=== PATIENT | male | born 1945 | race African-American/Black ===

== ENCOUNTER 2017-04-28 05:03 | Emergency (ER) | payer MEDICARE, OTHER ==
[~2017-04-28] VITALS: Ht 172.7 cm; Wt 72.6 kg
[~2017-04-28 05:03] MED LIST: ADVAIR 100/501 PUFF1 INH; ENALAPRIL MALEAT5 MG ORAL; NAPROXEN500 M2 ORAL; NORCO 5-325 TA1 EACH ORAL; PERCOCET 5-3251 EACH ORAL; PROAIR HFA8.5 GM INH; SOMA350 MG PO; VICODIN ES 7.51 EACH ORAL
[2017-04-28] MEDS ORDERED: NORCO 10-325 T1 EACH ORAL (05:07)
[2017-04-28] MEDS ORDERED: GABAPENTIN300 MG ORAL (05:07)
[2017-04-28 05:10] VITALS: BP 134/70
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
[2017-04-28] MEDS ORDERED: HYDROmorphone 1mg/ml Carpuject IM ONE (05:30)
[2017-04-28] MEDS ORDERED: HYDROCODON-ACE1 EA16 ORAL (06:15)
[2017-04-28 06:44] VITALS: BP 114/87
== END 2017-04-28 06:44 | disposition home or self-care (01) ==
LOC: EDBD 05:03 → EMR 05:36
DX: M54.41 Lumbago with sciatica, right side (principal); G89.29 Other chronic pain; I10 Essential (primary) hypertension; J45.909 Unspecified asthma, uncomplicated; K76.0 Fatty (change of) liver, not elsewhere classified
CPT/HCPCS: 96372; 99283; J1170

== ENCOUNTER 2017-05-25 01:14 | Inpatient (IN) | payer MEDICARE, OTHER ==
[~2017-05-25] VITALS: Ht 172.7 cm; Wt 68.0 kg
[~2017-05-25 01:14] MED LIST changes: +GABAPENTIN300 MG ORAL; +HYDROCODON-ACE1 EA16 ORAL; +NORCO 10-325 T1 EACH ORAL
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
[2017-05-25] MEDS ORDERED: Norco 5mg/325mg tab ORAL ONE (01:30)
[2017-05-25] MEDS ORDERED: Lidocaine 1% Plain 30 ml INJ ONE (01:30)
[2017-05-25 01:43] VITALS: BP 144/93
[2017-05-25 02:20] LABS: BASOPHILS % (AUTO) 2.2 % (0.0-2.0); EOSINOPHILS % (AUTO) 2.1 % (0.0-3.0); LYMPHOCYTES % (AUTO) 33.6 % (20.0-45.0); MEAN CORPUSCULAR HEMOGLOBIN 28.9 PG (27.0-31.0); MEAN CORPUSCULAR HGB CONC 34.7 G/DL (32.0-36.0); MEAN CORPUSCULAR VOLUME 83 FL (80-99); MEAN PLATELET VOLUME 7.4 FL (6.5-10.1); MONOCYTES % (AUTO) 7.9 % (1.0-10.0); NEUTROPHILS % (AUTO) 54.2 % (45.0-75.0); PLATELET COUNT 332 K/UL (150-450); RED CELL DISTRIBUTION WIDTH 12.1 % (11.6-14.8); WHITE BLOOD COUNT 9.3 K/UL (4.8-10.8)
[2017-05-25 02:36] LABS: ALANINE AMINOTRANSFERASE 19 U/L (3-41); ALBUMIN/GLOBULIN RATIO 1.3 (1.0-2.7); ANION GAP 14 (5-15); ASPARTATE AMINO TRANSFERASE 20 U/L (5-40); CALCIUM 8.8 mg/dL (8.6-10.2); CARBON DIOXIDE 24 mEQ/L (20-30); CHLORIDE 97 mEQ/L (98-107); HEMOLYSIS 8; POTASSIUM 3.9 mEQ/L (3.4-4.9); SODIUM 135 mEQ/L (135-145); TOTAL PROTEIN 6.9 g/dL (6.6-8.7)
[2017-05-25 02:40] LABS: APPEARANCE, BODY FLUID CLOUDY; BD FL VOLUME 70 mL
[2017-05-25 02:42] LABS: BD FL SOURCE SYNOVIAL
[2017-05-25 02:46] LABS: BODY FLUID NUCLEATED CELLS 32000 /CUMM; BODY FLUID RBC 50 /CUMM; MONONUCLEAR WBC 4 %; POLYMORPHONUCLEAR WBC 95 %
[2017-05-25 03:13] LABS: PROTHROMBIN TIME 10.4 SEC (9.30-11.50)
[2017-05-25 04:00] VITALS: BP 151/93
[2017-05-25] MEDS ORDERED: HYDROmorphone 1mg/ml Carpuject IVP ONE ×2 (05:15→05:30)
[2017-05-25 06:30] VITALS: BP 136/79
[2017-05-25] MEDS ORDERED: Miralax 17gm pkt ORAL PRN (07:15)
[2017-05-25] MEDS ORDERED: DuoNeb 0.5-3(2.5)mg/3ml neb HHN PRN (07:15)
[2017-05-25] MEDS ORDERED: Nitroglycerin Subl 0.4mg tab (Bottle Of 25) SL PRN (07:15)
[2017-05-25] MEDS: Cefepime HCl 2 GM in D5W 110 ML IV SCH ×2 (08:06→20:39)
[2017-05-25] MEDS: Heparin 5000 units/ml inj SUBQ SCH ×2 (08:08→20:40)
[2017-05-25 08:46] VITALS: BP 124/74
--- NOTE | 2017-05-25 08:59 | Consultation ---
Consult Note Consult Note Patient seen/evaluated. Knee aspiration with 32k WBC. No fever/Chills. Crystals and Gram stain not done yet. Will order Gram stain. We are awaiting crystal to come back from [facility]. spoke to labratory to do the required testing STAT. Will follow up YUSRA DONATO May 25, 2017 08:59
[2017-05-25] MEDS ORDERED: Vancomycin 1 GM in D5W 275 ML IVPB ONE (09:00)
--- NOTE | 2017-05-25 09:17 | Consultation ---
Consult Note Consult Note Addendum. I was told that crystal are not done at this hospital until Saturday. Gram stain was not ordered and it is ordered. patient has had a history of gout and similar presentation in the past and was treated with gout meds., Recommend NSAID and other gout meds. Will await gram stain. YUSRA DONATO May 25, 2017 09:17
[2017-05-25] MEDS: Morphine Sulfate 2mg/ml Inj IVP PRN ×2 (09:53→15:20)
[2017-05-25] MEDS: celeBREX 200mg Cap **SURGERY PATIENTS ONLY ORAL SCH (10:00)
[2017-05-25] MEDS: Enalapril 5mg tab ORAL SCH (11:40)
[2017-05-25 12:00] VITALS: BP 128/76
--- NOTE | 2017-05-25 13:32 | Consultation ---
DATE OF CONSULTATION: 05/25/2017 ORTHOPEDIC CONSULTATION REASON FOR CONSULTATION: Right knee swelling, possible septic joint. BRIEF HISTORY: The patient is a pleasant 72-year-old healthy gentleman with past medical history including gout with gouty exacerbation in the past, required some colchicine and medications. He presented in the ER after 4 days of swelling in his right knee. He has had no fever, chills, or systemic signs of infection. His has a normal white count. He was evaluated and the ER physician aspirated his right knee fluid. The knee fluid revealed 32,000 WBC. There was a left shift. The patient was admitted for to rule out septic joint and Orthopedic consultation was obtained. Crystals were ordered, although crystals apparently are not being done at the hospital over the weekend. Gram stain was not ordered. Gram stain has been ordered since I have evaluated this patient at this point, and we are awaiting the results. He has had no numbness, tingling, or weakness. He has had no other significant injuries. Main issue is pain in the right knee. PAST MEDICAL HISTORY: Significant for history of hypertension. No history of diabetes. PAST SURGICAL HISTORY: None. MEDICATIONS: Please see chart, this was reviewed. ALLERGIES: No known drug allergies. SOCIAL HISTORY: He has taken up smoking 3 months ago. He does not drink excessively. He does not have any other major issues. He is an independent ambulator. PHYSICAL EXAMINATION: EXTREMITIES: Examination of the right knee revealed a swollen knee. It is hot and irritated. He does have some mild range of motion, short of 10 degrees for full extension, and up to 40 degrees of flexion. . LABORATORY AND DIAGNOSTIC DATA: X-rays are pending. Laboratory reveals very 32,000 white count on the right knee aspiration with a left shift with 25% PMNs . Cultures and Gram stain have not been ordered and these were ordered at this point. Crystals are pending. IMPRESSION: Right knee swelling, most likely gouty arthritis based on the history, lack of fever, chills, and white count with history of gout in the past. PLAN: At this time, we will await the Gram stain. We will hold off any antibiotics. Systemic antiinflammatory. We will ask Dr. Dunaway to provide gouty medication for this patient. We will follow up on the results of Gram stain. I will follow the patient clinically. We will follow up on the result of crystals, and I have asked the laboratory to send this out stat to possibly another laboratory for crystals. Sarmad Wilson M.D. DR: AYDE JOB#: [id number] CC:
[2017-05-25] MEDS: Indomethacin 25mg cap ORAL SCH ×2 (13:40→17:49)
--- NOTE | 2017-05-25 13:53 | History and Physical ---
History of Present Illness General Date patient seen: May 25, 2017 Reason for Hospitalization: knee pian Present Illness HPI 71-year-old male with a history of severe degenerative disc disease, COPD , brought in by paramedics with pain, palpable warmth and swelling to right knee. Pain worse with flexion, movement of knee. Pt is admitted because of intractable pain and possibility of septic joint. Allergies: Coded Allergies: No Known Allergies (Unverified , 04/28/17) Medication History Scheduled Enalapril Maleate* (Enalapril Maleate*), 5 MG ORAL DA, (Reported) Fluticasone/Salmeterol (Advair 100-50 Diskus), 1 PUFF INH NEEDED, (Reported) Gabapentin* (Gabapentin*), 300 MG ORAL THREE TIMES A DAY, (Reported) Naproxen* (Naproxen*), 500 MG ORAL TWICE A DAY, (Reported) Scheduled PRN Albuterol Sulfate* (Proair Hfa*), 2 PUFFS INH Q6H PRN, (Reported) Carisoprodol* (Soma*), 350 MG PO Q6 PRN, (Reported) Hydrocodone Bit/Acetaminophen 10-325* (Linwood 10-325*), 1 TAB ORAL Q4H PRN for For Pain, (Reported) Hydrocodone Bit/Acetaminophen 5-325* ([place] 5-325*), 1 TAB ORAL Q4H PRN for For Pain, (Reported) Hydrocodone/Acetaminophen 7.5-325* (Hydrocodon-Acetaminoph 7.5-325*), 1 TAB ORAL Q6H PRN for For Pain Oxycodone/Acetaminophen 5-325* (Percocet 5-325 Mg Tablet*), 1 TAB ORAL Q6H PRN for For Pain Patient History Healthcare decision maker Resuscitation status Full Code Advanced Directive on File Past Medical/Surgical History Past Medical/Surgical History: (1) Osteoarthritis Review of Systems All Other Systems: negative except mentioned in HPI Physical Exam General Appearance: WD/WN, no apparent distress Lines, tubes and drains: peripheral HEENT: normocephalic Neck: non-tender, normal alignment Respiratory/Chest: chest wall non-tender, lungs clear Breasts: no masses Cardiovascular/Chest: normal peripheral pulses Abdomen: normal bowel sounds, non tender Genitourinary/Rectal: normal genital exam Extremities: normal range of motion Skin Exam: normal pigmentation Neurologic: no motor/sensory deficits Last 24 Hour Vital Signs Date Time Temp Pulse Resp B/P Pulse Ox O2 Delivery O2 Flow Rate FiO2 05/25/17 12:00 97.0 86 20 128/76 99 Room Air 05/25/17 11:40 124/74 05/25/17 10:23 97.9 05/25/17 08:46 97.9 75 18 124/74 96 Room Air 05/25/17 06:30 97.7 72 18 136/79 98 Room Air 05/25/17 06:14 98.7 77 18 128/78 98 Room Air 05/25/17 04:00 98.7 77 18 151/93 99 Room Air 05/25/17 03:02 98.4 05/25/17 01:43 98.4 18 144/93 99 Room Air 05/25/17 01:18 98.4 91 18 144/93 99 Room Air Intake and Output 05/24/17 05/25/17 19:00 07:00 Intake Total 50 ml Balance 50 ml Intake Oral 50 ml Laboratory Tests Test 05/25/17 01:52 05/25/17 02:10 Body Fluid Source Synovial Body Fluid Volume 70 mL Body Fluid Appearance Cloudy Body Fluid RBC 50 /CUMM Body Fluid Total Nucleated Cells 96928 /CUMM Body Fluid Polynuclear WBCs (%) 95 % Body Fluid Mononuclear WBCs (%) 4 % Body Fluid Mesothelial Cells (%) 1 % Synovial Fluid Crystals Pending White Blood Count 9.3 K/UL (4.8-10.8) Red Blood Count 4.90 M/UL (4.70-6.10) Hemoglobin 14.2 G/DL (14.2-18.0) Hematocrit 40.9 % (42.0-52.0) L Mean Corpuscular Volume 83 FL (80-99) Mean Corpuscular Hemoglobin 28.9 PG (27.0-31.0) Mean Corpuscular Hemoglobin Concent 34.7 G/DL (32.0-36.0) Red Cell Distribution Width 12.1 % (11.6-14.8) Platelet Count 332 K/UL (150-450) Mean Platelet Volume 7.4 FL (6.5-10.1) Neutrophils (%) (Auto) 54.2 % (45.0-75.0) Lymphocytes (%) (Auto) 33.6 % (20.0-45.0) Monocytes (%) (Auto) 7.9 % (1.0-10.0) Eosinophils (%) (Auto) 2.1 % (0.0-3.0) Basophils (%) (Auto) 2.2 % (0.0-2.0) H Prothrombin Time 10.4 SEC (9.30-11.50) Prothromb Time International Ratio 1.0 (0.9-1.1) Activated Partial Thromboplast Time 29 SEC (23-33) Sodium Level 135 mEQ/L (135-145) Potassium Level 3.9 mEQ/L (3.4-4.9) Chloride Level 97 mEQ/L (98-107) L Carbon Dioxide Level 24 mEQ/L (20-30) Anion Gap 14 (5-15) Blood Urea Nitrogen 22 mg/dL (7-23) Creatinine 1.0 mg/dL (0.7-1.2) Estimat Glomerular Filtration Rate mL/min (>60) Glucose Level 106 mg/dL (74-106) Calcium Level 8.8 mg/dL (8.6-10.2) Total Bilirubin 0.7 mg/dL (0.0-1.2) Aspartate Amino Transf (AST/SGOT) 20 U/L (5-40) Alanine Aminotransferase (ALT/SGPT) 19 U/L (3-41) Alkaline Phosphatase 70 U/L (40-129) Total Protein 6.9 g/dL (6.6-8.7) Albumin 4.0 g/dL (3.5-5.2) Globulin 2.9 g/dL Albumin/Globulin Ratio 1.3 (1.0-2.7) Microbiology Date/Time Source Procedure Growth Status 05/25/17 09:50 Synovial Fluid Gram Stain - Final Resulted 05/25/17 09:50 Synovial Fluid Body Fluid Culture - Preliminary Resulted Height (Feet): 5 Height (Inches): 8.00 Weight (Pounds): 150 Medications Current Medications Medications (Trade) Dose Ordered Sig/Josh Route PRN Reason Start Time Stop Time Status Last Admin Dose Admin Acetaminophen (Tylenol) 650 mg Q4H PRN ORAL fever 05/25/17 07:15 06/24/17 07:14 Acetaminophen/ Hydrocodone Bitart ([place] 10/325) 1 ea Q4H PRN ORAL Severe Pain (Pain Scale 7-10) 05/25/17 07:15 06/01/17 07:14 Albuterol/ Ipratropium (DuoNeb 0.5-3(2.5)mg/3ml) 3 ml Q4H PRN HHN Shortness of Breath 05/25/17 07:15 05/30/17 07:14 Carisoprodol (Soma) 350 mg EVERY 8 HOURS ORAL 05/25/17 14:00 06/24/17 13:59 05/25/17 13:41 Cefepime HCl/ Dextrose (Maxipime/D5W) 110 ml @ 220 mls/hr Q12HR@0800,2000 IV 05/25/17 08:00 06/01/17 07:59 05/25/17 08:06 Celecoxib (CeleBREX) 200 mg DAILY ORAL 05/25/17 10:00 05/29/17 09:01 Dextrose (Dextrose 50%) STAT PRN IV Hypoglycemia 05/25/17 07:15 06/24/17 07:14 Enalapril Maleate (Vasotec) 5 mg DAILY ORAL 05/25/17 09:00 06/24/17 08:59 05/25/17 11:40 Gabapentin (Neurontin) 300 mg THREE TIMES A DAY ORAL 05/25/17 09:00 06/24/17 08:59 05/25/17 13:40 Heparin Sodium (Porcine) 5000 units 5,000 units EVERY 12 HOURS SUBQ 05/25/17 09:00 06/24/17 08:59 05/25/17 08:08 Indomethacin (Indocin) 25 mg THREE TIMES A DAY ORAL 05/25/17 13:00 06/24/17 12:59 05/25/17 13:40 Methylprednisolone Sodium Succinate (Solu-MEDROL) 60 mg EVERY 6 HOURS IVP 05/25/17 18:00 06/24/17 17:59 Morphine Sulfate (Morphine Sulfate) 2 mg Q4H PRN IVP Moderate Pain (Pain Scale 4-6) 05/25/17 07:15 06/01/17 07:14 05/25/17 09:53 Nitroglycerin (Ntg) 0.4 mg Q5M PRN SL Prn Chest Pain 05/25/17 07:15 06/24/17 07:14 Ondansetron HCl (Zofran) 4 mg Q6H PRN IVP Nausea & Vomiting 05/25/17 07:15 06/24/17 07:14 Polyethylene Glycol (Miralax) 17 gm DAILYPRN PRN ORAL Constipation 05/25/17 07:15 06/24/17 07:14 Temazepam (Restoril) 15 mg HSPRN PRN ORAL Insomnia 05/25/17 07:15 06/01/17 07:14 Vancomycin HCl 1 ea 1 ea DAILY PRN MISC PER RX PROTOCOL 05/25/17 07:30 06/24/17 07:29 Vancomycin HCl/ Dextrose (Vancomycin/D5W) 275 ml @ 183.708 mls/hr Q12HR IVPB 05/25/17 21:00 05/30/17 20:59 Assessment/Plan Problem List: (1) Septic joint of right knee joint ICD Codes: M00.9 - Pyogenic arthritis, unspecified SNOMED: 085812251, [id number] Qualifiers: Qualified Codes: M00.9 - Pyogenic arthritis, unspecified (2) Osteoarthritis ICD Codes: M19.90 - Unspecified osteoarthritis, unspecified site SNOMED: 816027461 Assessment/Plan s/p drainage f/u cultures and gram stain iv abx Indocin and steroids Rheuma evaluation POLY DALEY May 25, 2017 13:53
[2017-05-25 15:54] VITALS: BP 117/77
[2017-05-25] MEDS: Solu-MEDROL 125mg Inj IVP SCH (17:50)
[2017-05-25] MEDS: Vancomycin 750mg/D5W 275ml IVPB SCH ×2 (20:40)
[2017-05-25] MEDS: Norco 10mg/325mg tab ORAL PRN (20:46)
[2017-05-25] MEDS ORDERED: NS 275ml ONE (20:52)
[2017-05-25] MEDS ORDERED: Tubing IV Secondary IV ONE (20:52)
[2017-05-26] VITALS: BP 117/76
[2017-05-26] MEDS: Solu-MEDROL 125mg Inj IVP SCH ×2 (00:04→05:44)
[2017-05-26 04:00] VITALS: BP_SYST 110; BP_SYST 122; BP_DIAS 68; BP_DIAS 78
[2017-05-26 07:37] LABS: BASOPHILS % (AUTO) 0.4 % (0.0-2.0); EOSINOPHILS % (AUTO) 0.1 % (0.0-3.0); LYMPHOCYTES % (AUTO) 25.4 % (20.0-45.0); MEAN CORPUSCULAR HEMOGLOBIN 29.3 PG (27.0-31.0); MEAN CORPUSCULAR HGB CONC 34.5 G/DL (32.0-36.0); MEAN CORPUSCULAR VOLUME 85 FL (80-99); MEAN PLATELET VOLUME 7.2 FL (6.5-10.1); MONOCYTES % (AUTO) 2.1 % (1.0-10.0); PLATELET COUNT 302 K/UL (150-450); RED BLOOD COUNT 4.68 M/UL (4.70-6.10); RED CELL DISTRIBUTION WIDTH 12.5 % (11.6-14.8); WHITE BLOOD COUNT 5.7 K/UL (4.8-10.8)
[2017-05-26 07:49] LABS: ALANINE AMINOTRANSFERASE 16 U/L (3-41); ALBUMIN/GLOBULIN RATIO 1.3 (1.0-2.7); ANION GAP 11 (5-15); ASPARTATE AMINO TRANSFERASE 14 U/L (5-40); CALCIUM 9.6 mg/dL (8.6-10.2); CARBON DIOXIDE 27 mEQ/L (20-30); CHLORIDE 98 mEQ/L (98-107); CREATININE 0.8 mg/dL (0.7-1.2); HEMOLYSIS 1; POTASSIUM 4.9 mEQ/L (3.4-4.9); SODIUM 136 mEQ/L (135-145); TOTAL PROTEIN 7.1 g/dL (6.6-8.7)
[2017-05-26 08:00] VITALS: BP 128/81
--- NOTE | 2017-05-26 08:59 | Diagnostic Imaging Report ---
History: Pain and swelling. Technique: Frontal, lateral, and oblique views of the right knee are provided. Comparison: 02/08/14 Findings: Severe narrowing of the medial and lateral and patellofemoral compartments with subchondral sclerosis and cyst formation is identified. There is moderate tricompartmental osteophytosis. Moderate-sized joint effusion is identified with dystrophic calcifications in the suprapatellar region similar to the prior examination in 2013. Soft tissue density in the suprapatellar pouch and posterior to the knee joint is similar to the prior examination and suggests chronic synovitis. Soft tissue swelling is noted inferior to the patella with thickening of the region of the patellar tendon. Impression: 1. Severe right knee osteoarthritis and suspected chondrocalcinosis. 2. Calcific densities in the suprapatellar region appear similar to the prior exam in 2013 and may represent loose bodies. 3. Soft tissue swelling, moderate-sized effusion and thickening of the patellar tendon appear essentially stable reflecting chronic inflammatory changes.
[2017-05-26] MEDS: celeBREX 200mg Cap **SURGERY PATIENTS ONLY ORAL SCH (09:00)
[2017-05-26] MEDS: Indomethacin 25mg cap ORAL SCH ×3 (09:35→17:52)
[2017-05-26] MEDS: Enalapril 5mg tab ORAL SCH (09:35)
[2017-05-26] MEDS: Cefepime HCl 2 GM in D5W 110 ML IV SCH ×2 (09:36→20:23)
[2017-05-26] MEDS: Norco 10mg/325mg tab ORAL PRN ×2 (09:36→16:40)
[2017-05-26] MEDS: Heparin 5000 units/ml inj SUBQ SCH ×2 (09:37→20:24)
[2017-05-26 12:00] VITALS: BP 133/86
[2017-05-26] MEDS: Vancomycin 750mg/D5W 275ml IVPB SCH ×4 (12:40→21:28)
--- NOTE | 2017-05-26 13:49 | Infectious Diseases Prog Note ---
Assessment/Plan Assessment/Plan ID rhiannon werner dictated # [id number] Subjective Allergies: Coded Allergies: No Known Allergies (Unverified , 04/28/17) Objective Vital Signs Last 24 Hour Vital Signs Date Time Temp Pulse Resp B/P Pulse Ox O2 Delivery O2 Flow Rate FiO2 05/26/17 12:00 97.9 83 20 133/86 98 Room Air 05/26/17 10:35 97.3 05/26/17 09:48 86 18 Room Air 21 05/26/17 09:35 128/81 05/26/17 08:00 97.3 86 20 128/81 98 Room Air 05/26/17 04:00 97.0 62 18 110/78 100 Room Air 05/26/17 04:00 97.5 69 18 122/68 96 Room Air 05/26/17 00:00 97.0 71 18 117/76 98 Room Air 05/25/17 15:54 98.2 79 20 117/77 97 Room Air Height (Feet): 5 Height (Inches): 8.00 Weight (Pounds): 150 Microbiology Date/Time Source Procedure Growth Status 05/25/17 09:50 Synovial Fluid Gram Stain - Final Resulted 05/25/17 09:50 Synovial Fluid Body Fluid Culture - Preliminary NO GROWTH AFTER 24 HOURS Resulted Laboratory Tests Test 05/26/17 06:08 White Blood Count 5.7 K/UL (4.8-10.8) Red Blood Count 4.68 M/UL (4.70-6.10) L Hemoglobin 13.7 G/DL (14.2-18.0) L Hematocrit 39.7 % (42.0-52.0) L Mean Corpuscular Volume 85 FL (80-99) Mean Corpuscular Hemoglobin 29.3 PG (27.0-31.0) Mean Corpuscular Hemoglobin Concent 34.5 G/DL (32.0-36.0) Red Cell Distribution Width 12.5 % (11.6-14.8) Platelet Count 302 K/UL (150-450) Mean Platelet Volume 7.2 FL (6.5-10.1) Neutrophils (%) (Auto) 72.0 % (45.0-75.0) Lymphocytes (%) (Auto) 25.4 % (20.0-45.0) Monocytes (%) (Auto) 2.1 % (1.0-10.0) Eosinophils (%) (Auto) 0.1 % (0.0-3.0) Basophils (%) (Auto) 0.4 % (0.0-2.0) Sodium Level 136 mEQ/L (135-145) Potassium Level 4.9 mEQ/L (3.4-4.9) Chloride Level 98 mEQ/L (98-107) Carbon Dioxide Level 27 mEQ/L (20-30) Anion Gap 11 (5-15) Blood Urea Nitrogen 18 mg/dL (7-23) Creatinine 0.8 mg/dL (0.7-1.2) Estimat Glomerular Filtration Rate mL/min (>60) Glucose Level 143 mg/dL (74-106) H Calcium Level 9.6 mg/dL (8.6-10.2) Total Bilirubin 0.5 mg/dL (0.0-1.2) Aspartate Amino Transf (AST/SGOT) 14 U/L (5-40) Alanine Aminotransferase (ALT/SGPT) 16 U/L (3-41) Alkaline Phosphatase 69 U/L (40-129) Total Protein 7.1 g/dL (6.6-8.7) Albumin 4.1 g/dL (3.5-5.2) Globulin 3.0 g/dL Albumin/Globulin Ratio 1.3 (1.0-2.7) Current Medications Medications (Trade) Dose Ordered Sig/Josh Route PRN Reason Start Time Stop Time Status Last Admin Dose Admin Acetaminophen (Tylenol) 650 mg Q4H PRN ORAL fever 05/25/17 07:15 06/24/17 07:14 Acetaminophen/ Hydrocodone Bitart ([place] 10/325) 1 ea Q4H PRN ORAL Severe Pain (Pain Scale 7-10) 05/25/17 07:15 06/01/17 07:14 05/26/17 09:36 Albuterol/ Ipratropium (DuoNeb 0.5-3(2.5)mg/3ml) 3 ml Q4H PRN HHN Shortness of Breath 05/25/17 07:15 05/30/17 07:14 Carisoprodol (Soma) 350 mg EVERY 8 HOURS ORAL 05/25/17 14:00 06/24/17 13:59 05/26/17 05:45 Cefepime HCl/ Dextrose (Maxipime/D5W) 110 ml @ 220 mls/hr Q12HR@0800,2000 IV 05/25/17 08:00 06/01/17 07:59 05/26/17 09:36 Celecoxib (CeleBREX) 200 mg DAILY ORAL 05/25/17 10:00 05/29/17 09:01 Dextrose (Dextrose 50%) STAT PRN IV Hypoglycemia 05/25/17 07:15 06/24/17 07:14 Enalapril Maleate (Vasotec) 5 mg DAILY ORAL 05/25/17 09:00 06/24/17 08:59 05/26/17 09:35 Gabapentin (Neurontin) 300 mg THREE TIMES A DAY ORAL 05/25/17 09:00 06/24/17 08:59 05/26/17 13:25 Heparin Sodium (Porcine) 5000 units 5,000 units EVERY 12 HOURS SUBQ 05/25/17 09:00 06/24/17 08:59 05/26/17 09:37 Indomethacin (Indocin) 25 mg THREE TIMES A DAY ORAL 05/25/17 13:00 06/24/17 12:59 05/26/17 13:25 Methylprednisolone Sodium Succinate (Solu-MEDROL) 60 mg DAILY IVP 05/27/17 09:00 06/26/17 08:59 Morphine Sulfate (Morphine Sulfate) 2 mg Q4H PRN IVP Moderate Pain (Pain Scale 4-6) 05/25/17 07:15 06/01/17 07:14 05/25/17 15:20 Nitroglycerin (Ntg) 0.4 mg Q5M PRN SL Prn Chest Pain 05/25/17 07:15 06/24/17 07:14 Ondansetron HCl (Zofran) 4 mg Q6H PRN IVP Nausea & Vomiting 05/25/17 07:15 06/24/17 07:14 Polyethylene Glycol (Miralax) 17 gm DAILYPRN PRN ORAL Constipation 05/25/17 07:15 06/24/17 07:14 05/26/17 05:44 Temazepam (Restoril) 15 mg HSPRN PRN ORAL Insomnia 05/25/17 07:15 06/01/17 07:14 Vancomycin HCl 1 ea 1 ea DAILY PRN MISC PER RX PROTOCOL 05/25/17 07:30 8/28/17 07:29 Vancomycin HCl/ Dextrose (Vancomycin/D5W) 275 ml @ 183.708 mls/hr Q12HR IVPB 05/25/17 21:00 05/30/17 20:59 05/26/17 12:40 RADHA BANUELOS May 26, 2017 13:49
[2017-05-26 16:02] VITALS: BP 129/84
[2017-05-26 20:00] VITALS: BP 142/84
[2017-05-26] MEDS: Morphine Sulfate 2mg/ml Inj IVP PRN (23:37)
[2017-05-27] VITALS: BP 140/98
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
[2017-05-27] MEDS: Norco 10mg/325mg tab ORAL PRN ×3 (03:42→14:54)
[2017-05-27 04:00] VITALS: BP 140/91
[2017-05-27 07:02] LABS: BASOPHILS % (AUTO) 0.7 % (0.0-2.0); EOSINOPHILS % (AUTO) 0.3 % (0.0-3.0); MEAN CORPUSCULAR HEMOGLOBIN 30.2 PG (27.0-31.0); MEAN CORPUSCULAR HGB CONC 35.3 G/DL (32.0-36.0); MEAN CORPUSCULAR VOLUME 85 FL (80-99); MEAN PLATELET VOLUME 7.2 FL (6.5-10.1); MONOCYTES % (AUTO) 4.7 % (1.0-10.0); NEUTROPHILS % (AUTO) 68.3 % (45.0-75.0); PLATELET COUNT 290 K/UL (150-450); RED BLOOD COUNT 4.34 M/UL (4.70-6.10); RED CELL DISTRIBUTION WIDTH 12.2 % (11.6-14.8); WHITE BLOOD COUNT 12.6 K/UL (4.8-10.8)
[2017-05-27 07:42] LABS: ALANINE AMINOTRANSFERASE 14 U/L (3-41); ALBUMIN/GLOBULIN RATIO 1.3 (1.0-2.7); ANION GAP 12 (5-15); ASPARTATE AMINO TRANSFERASE 14 U/L (5-40); CARBON DIOXIDE 27 mEQ/L (20-30); CHLORIDE 101 mEQ/L (98-107); CREATININE 0.8 mg/dL (0.7-1.2); CRP QUANT 1.9 mg/dL (< 0.5); HEMOLYSIS 1; PHOSPHORUS 3.5 mg/dL (2.5-4.8); POTASSIUM 4.7 mEQ/L (3.4-4.9); SODIUM 140 mEQ/L (135-145); TOTAL PROTEIN 6.6 g/dL (6.6-8.7)
--- NOTE | 2017-05-27 08:04 | Diagnostic Imaging Report ---
Indication: PAIN Technique: One view of the chest Comparison: none Findings: The lungs and pleural spaces are clear. Heart size is normal. The aorta is tortuous. Impression: No acute process This agrees with the preliminary interpretation provided by the emergency room physician
[2017-05-27 08:15] VITALS: BP 127/80
[2017-05-27 08:30] LABS: ERYTHROCYTE SEDIMENTATION RATE 21 MM/HR (0-20)
[2017-05-27] MEDS: Indomethacin 25mg cap ORAL SCH ×2 (08:40→12:58)
[2017-05-27] MEDS: celeBREX 200mg Cap **SURGERY PATIENTS ONLY ORAL SCH (08:40)
[2017-05-27] MEDS: Enalapril 5mg tab ORAL SCH (08:41)
[2017-05-27] MEDS: Cefepime HCl 2 GM in D5W 110 ML IV SCH (08:42)
[2017-05-27] MEDS: Heparin 5000 units/ml inj SUBQ SCH (08:43)
[2017-05-27] MEDS: Vancomycin 1gm/D5W 275ml IVPB SCH ×4 (08:59→09:37)
[2017-05-27] MEDS ORDERED: Solu-MEDROL 125mg Inj IVP SCH (09:00)
--- NOTE | 2017-05-27 09:42 | Infectious Diseases Prog Note ---
Assessment/Plan Assessment/Plan ASSESSMENT: 72 y/o male with: // Right knee inflammatory arthritis, suspect gout > infection - SP arthrocentesis 05/25 - GS(-), Cx NGTD, crystals pending // Acute leukocytosis, afebrile ( on steroids ) // Gout, likely flare right knee // NKDA // Full Code PLAN: - DC IV vancomycin, cefepime d# 3, ok to DC home off of ABX from ID standpoint - taper steroids per primary - f/u final cultures - f/u crystal analysis - monitor CBC, temperatures - monitor BMP Subjective Allergies: Coded Allergies: No Known Allergies (Unverified , 04/28/17) Subjective remains afebrile knee improved Objective Vital Signs Last 24 Hour Vital Signs Date Time Temp Pulse Resp B/P Pulse Ox O2 Delivery O2 Flow Rate FiO2 05/27/17 08:41 139/86 05/27/17 08:15 96.8 85 12 127/80 85 Room Air 05/27/17 07:38 82 16 Room Air 21 05/27/17 04:00 97.3 77 20 140/91 98 Room Air 05/27/17 00:00 97.3 73 18 140/98 97 Room Air 05/26/17 20:12 87 18 Room Air 21 05/26/17 20:00 97.9 84 18 142/84 98 Room Air 05/26/17 17:39 97.9 05/26/17 16:02 97.9 86 20 129/84 98 Room Air 05/26/17 15:09 97.9 05/26/17 12:00 97.9 83 20 133/86 98 Room Air 05/26/17 09:48 86 18 Room Air 21 Height (Feet): 5 Height (Inches): 8.00 Weight (Pounds): 150 General Appearance: no acute distress Respiratory/Chest: no respiratory distress Cardiovascular: normal rate, regular rhythm Abdomen: normal bowel sounds, soft, non tender, non distended Extremities: other - right knee improved Microbiology Date/Time Source Procedure Growth Status 05/25/17 09:50 Synovial Fluid Gram Stain - Final Resulted 05/25/17 09:50 Synovial Fluid Body Fluid Culture - Preliminary NO GROWTH AFTER 48 HOURS Resulted Laboratory Tests Test 05/26/17 20:12 05/27/17 05:25 Vancomycin Level Trough 10.9 ug/mL (5.0-12.0) White Blood Count 12.6 K/UL (4.8-10.8) #H Red Blood Count 4.34 M/UL (4.70-6.10) L Hemoglobin 13.1 G/DL (14.2-18.0) L Hematocrit 37.1 % (42.0-52.0) L Mean Corpuscular Volume 85 FL (80-99) Mean Corpuscular Hemoglobin 30.2 PG (27.0-31.0) Mean Corpuscular Hemoglobin Concent 35.3 G/DL (32.0-36.0) Red Cell Distribution Width 12.2 % (11.6-14.8) Platelet Count 290 K/UL (150-450) Mean Platelet Volume 7.2 FL (6.5-10.1) Neutrophils (%) (Auto) 68.3 % (45.0-75.0) Lymphocytes (%) (Auto) 26.0 % (20.0-45.0) Monocytes (%) (Auto) 4.7 % (1.0-10.0) Eosinophils (%) (Auto) 0.3 % (0.0-3.0) Basophils (%) (Auto) 0.7 % (0.0-2.0) Erythrocyte Sedimentation Rate 21 MM/HR (0-20) H Sodium Level 140 mEQ/L (135-145) Potassium Level 4.7 mEQ/L (3.4-4.9) Chloride Level 101 mEQ/L (98-107) Carbon Dioxide Level 27 mEQ/L (20-30) Anion Gap 12 (5-15) Blood Urea Nitrogen 18 mg/dL (7-23) Creatinine 0.8 mg/dL (0.7-1.2) Estimat Glomerular Filtration Rate mL/min (>60) Glucose Level 98 mg/dL (74-106) Calcium Level 9.0 mg/dL (8.6-10.2) Phosphorus Level 3.5 mg/dL (2.5-4.8) Magnesium Level 2.0 mg/dL (1.7-2.5) Total Bilirubin 0.3 mg/dL (0.0-1.2) Aspartate Amino Transf (AST/SGOT) 14 U/L (5-40) Alanine Aminotransferase (ALT/SGPT) 14 U/L (3-41) Alkaline Phosphatase 66 U/L (40-129) C-Reactive Protein, Quantitative 1.9 mg/dL (< 0.5) H Total Protein 6.6 g/dL (6.6-8.7) Albumin 3.8 g/dL (3.5-5.2) Globulin 2.8 g/dL Albumin/Globulin Ratio 1.3 (1.0-2.7) Current Medications Medications (Trade) Dose Ordered Sig/Josh Route PRN Reason Start Time Stop Time Status Last Admin Dose Admin Acetaminophen (Tylenol) 650 mg Q4H PRN ORAL fever 05/25/17 07:15 06/24/17 07:14 Acetaminophen/ Hydrocodone Bitart ([place] 10/325) 1 ea Q4H PRN ORAL Severe Pain (Pain Scale 7-10) 05/25/17 07:15 06/01/17 07:14 05/27/17 08:41 Albuterol/ Ipratropium (DuoNeb 0.5-3(2.5)mg/3ml) 3 ml Q4H PRN HHN Shortness of Breath 05/25/17 07:15 05/30/17 07:14 Carisoprodol (Soma) 350 mg EVERY 8 HOURS ORAL 05/25/17 14:00 06/24/17 13:59 05/27/17 05:14 Cefepime HCl/ Dextrose (Maxipime/D5W) 110 ml @ 220 mls/hr Q12HR@0800,2000 IV 05/25/17 08:00 06/01/17 07:59 05/27/17 08:42 Celecoxib (CeleBREX) 200 mg DAILY ORAL 05/25/17 10:00 05/29/17 09:01 05/27/17 08:40 Dextrose (Dextrose 50%) STAT PRN IV Hypoglycemia 05/25/17 07:15 06/24/17 07:14 Enalapril Maleate (Vasotec) 5 mg DAILY ORAL 05/25/17 09:00 06/24/17 08:59 05/27/17 08:41 Gabapentin (Neurontin) 300 mg THREE TIMES A DAY ORAL 05/25/17 09:00 06/24/17 08:59 05/27/17 08:40 Heparin Sodium (Porcine) 5000 units 5,000 units EVERY 12 HOURS SUBQ 05/25/17 09:00 06/24/17 08:59 05/27/17 08:43 Indomethacin (Indocin) 25 mg THREE TIMES A DAY ORAL 05/25/17 13:00 06/24/17 12:59 05/27/17 08:40 Methylprednisolone Sodium Succinate 60 mg 60 mg DAILY IVP 05/27/17 09:00 06/26/17 08:59 05/27/17 08:59 Morphine Sulfate (Morphine Sulfate) 2 mg Q4H PRN IVP Moderate Pain (Pain Scale 4-6) 05/25/17 07:15 06/01/17 07:14 05/26/17 23:37 Nitroglycerin (Ntg) 0.4 mg Q5M PRN SL Prn Chest Pain 05/25/17 07:15 06/24/17 07:14 Ondansetron HCl (Zofran) 4 mg Q6H PRN IVP Nausea & Vomiting 05/25/17 07:15 06/24/17 07:14 Polyethylene Glycol (Miralax) 17 gm DAILYPRN PRN ORAL Constipation 05/25/17 07:15 06/24/17 07:14 05/26/17 05:44 Temazepam (Restoril) 15 mg HSPRN PRN ORAL Insomnia 05/25/17 07:15 06/01/17 07:14 Vancomycin HCl (Vanco rx to dose) 1 ea DAILY PRN MISC PER RX PROTOCOL 05/25/17 07:30 06/24/17 07:29 Vancomycin HCl/ Dextrose (Vancomycin/D5W) 275 ml @ 183.708 mls/hr Q12H IVPB 05/27/17 08:00 06/01/17 07:59 CHERI GARCÍA May 27, 2017 09:42
[2017-05-27 11:58] VITALS: BP 138/102
--- NOTE | 2017-05-27 15:11 | Pulmonology Progress Note ---
Assessment/Plan Problems: (1) Septic joint of right knee joint (2) Osteoarthritis (3) gouty arthritis Assessment/Plan improving continue IV check synovial fluid symptomatic treatment Subjective Interval Events: late note for 05/26 Allergies: Coded Allergies: No Known Allergies (Unverified , 04/28/17) Objective Last 24 Hour Vital Signs Date Time Temp Pulse Resp B/P Pulse Ox O2 Delivery O2 Flow Rate FiO2 05/27/17 11:58 97.7 78 16 138/102 96 Room Air 05/27/17 08:41 139/86 05/27/17 08:15 96.8 85 12 127/80 85 Room Air 05/27/17 07:38 82 16 Room Air 05/27/17 04:00 97.3 77 20 140/91 98 Room Air 05/27/17 00:00 97.3 73 18 140/98 97 Room Air 05/26/17 20:12 87 18 Room Air 21 05/26/17 20:00 97.9 84 18 142/84 98 Room Air 05/26/17 17:39 97.9 05/26/17 16:02 97.9 86 20 129/84 98 Room Air 05/26/17 15:09 97.9 Intake and Output 05/26/17 05/27/17 19:00 07:00 Intake Total 745.000 ml 385.000 ml Balance 745.000 ml 385.000 ml Intake Oral 360 ml IV Total 385.000 ml 385.000 ml # Voids 1 4 General Appearance: cachetic HEENT: normocephalic, atraumatic Respiratory/Chest: chest wall non-tender, lungs clear Cardiovascular: normal peripheral pulses, normal rate Abdomen: normal bowel sounds, soft, non tender Genitourinary: normal external genitalia Extremities: no clubbing Skin: no rash, no ulcers Lymphatic: no neck adenopathy, no groin adenopathy Microbiology Date/Time Source Procedure Growth Status 05/25/17 09:50 Synovial Fluid Gram Stain - Final Resulted 05/25/17 09:50 Synovial Fluid Body Fluid Culture - Preliminary NO GROWTH AFTER 48 HOURS Resulted Laboratory Tests 05/26/17 20:12: Vancomycin Level Trough 10.9 05/27/17 05:25: White Blood Count 12.6#H, Red Blood Count 4.34L, Hemoglobin 13.1L, Hematocrit 37.1L, Mean Corpuscular Volume 85, Mean Corpuscular Hemoglobin 30.2, Mean Corpuscular Hemoglobin Concent 35.3, Red Cell Distribution Width 12.2, Platelet Count 290, Mean Platelet Volume 7.2, Neutrophils (%) (Auto) 68.3, Lymphocytes (% ) (Auto) 26.0, Monocytes (%) (Auto) 4.7, Eosinophils (%) (Auto) 0.3, Basophils ( %) (Auto) 0.7, Erythrocyte Sedimentation Rate 21H, Sodium Level 140, Potassium Level 4.7, Chloride Level 101, Carbon Dioxide Level 27, Anion Gap 12, Blood Urea Nitrogen 18, Creatinine 0.8, Estimat Glomerular Filtration Rate , Glucose Level 98, Calcium Level 9.0, Phosphorus Level 3.5, Magnesium Level 2.0, Total Bilirubin 0.3, Aspartate Amino Transf (AST/SGOT) 14, Alanine Aminotransferase ( ALT/SGPT) 14, Alkaline Phosphatase 66, C-Reactive Protein, Quantitative 1.9H, Total Protein 6.6, Albumin 3.8, Globulin 2.8, Albumin/Globulin Ratio 1.3 Current Medications Medications (Trade) Dose Ordered Sig/Josh Route PRN Reason Start Time Stop Time Status Last Admin Dose Admin Acetaminophen (Tylenol) 650 mg Q4H PRN ORAL fever 05/25/17 07:15 06/24/17 07:14 Acetaminophen/ Hydrocodone Bitart ([place] 10/325) 1 ea Q4H PRN ORAL Severe Pain (Pain Scale 7-10) 05/25/17 07:15 06/01/17 07:14 05/27/17 14:54 Albuterol/ Ipratropium (DuoNeb 0.5-3(2.5)mg/3ml) 3 ml Q4H PRN HHN Shortness of Breath 05/25/17 07:15 05/30/17 07:14 Carisoprodol (Soma) 350 mg EVERY 8 HOURS ORAL 05/25/17 14:00 06/24/17 13:59 05/27/17 12:59 Cefepime HCl/ Dextrose (Maxipime/D5W) 110 ml @ 220 mls/hr Q12HR@0800,2000 IV 05/25/17 08:00 05/27/17 23:59 05/27/17 08:42 Celecoxib (CeleBREX) 200 mg DAILY ORAL 05/25/17 10:00 05/29/17 09:01 05/27/17 08:40 Dextrose (Dextrose 50%) STAT PRN IV Hypoglycemia 05/25/17 07:15 06/24/17 07:14 Enalapril Maleate (Vasotec) 5 mg DAILY ORAL 05/25/17 09:00 06/24/17 08:59 05/27/17 08:41 Gabapentin (Neurontin) 300 mg THREE TIMES A DAY ORAL 05/25/17 09:00 06/24/17 08:59 05/27/17 12:58 Heparin Sodium (Porcine) 5000 units 5,000 units EVERY 12 HOURS SUBQ 05/25/17 09:00 06/24/17 08:59 05/27/17 08:43 Indomethacin (Indocin) 25 mg THREE TIMES A DAY ORAL 05/25/17 13:00 06/24/17 12:59 05/27/17 12:58 Methylprednisolone Sodium Succinate 60 mg 60 mg DAILY IVP 05/27/17 09:00 06/26/17 08:59 05/27/17 08:59 Morphine Sulfate (Morphine Sulfate) 2 mg Q4H PRN IVP Moderate Pain (Pain Scale 4-6) 05/25/17 07:15 06/01/17 07:14 05/26/17 23:37 Nitroglycerin (Ntg) 0.4 mg Q5M PRN SL Prn Chest Pain 05/25/17 07:15 06/24/17 07:14 Ondansetron HCl (Zofran) 4 mg Q6H PRN IVP Nausea & Vomiting 05/25/17 07:15 06/24/17 07:14 Polyethylene Glycol (Miralax) 17 gm DAILYPRN PRN ORAL Constipation 05/25/17 07:15 06/24/17 07:14 05/26/17 05:44 Temazepam (Restoril) 15 mg HSPRN PRN ORAL Insomnia 05/25/17 07:15 06/01/17 07:14 Vancomycin HCl (Vanco rx to dose) 1 ea DAILY PRN MISC PER RX PROTOCOL 05/25/17 07:30 05/27/17 23:59 Vancomycin HCl/ Dextrose (Vancomycin/D5W) 275 ml @ 183.708 mls/hr Q12H IVPB 05/27/17 08:00 05/27/17 23:59 05/27/17 09:37 POLY DALEY May 27, 2017 15:11
--- NOTE | 2017-05-27 15:12 | Pulmonology Progress Note ---
Assessment/Plan Problems: (1) Septic joint of right knee joint (2) Osteoarthritis (3) gouty arthritis Assessment/Plan improving continue IV check synovial fluid symptomatic treatment awaiting crystal results. Subjective ROS Limited/Unobtainable: No Interval Events: no new complains Allergies: Coded Allergies: No Known Allergies (Unverified , 04/28/17) Objective Last 24 Hour Vital Signs Date Time Temp Pulse Resp B/P Pulse Ox O2 Delivery O2 Flow Rate FiO2 05/27/17 11:58 97.7 78 16 138/102 96 Room Air 05/27/17 08:41 139/86 05/27/17 08:15 96.8 85 12 127/80 85 Room Air 05/27/17 07:38 82 16 Room Air 21 05/27/17 04:00 97.3 77 20 140/91 98 Room Air 05/27/17 00:00 97.3 73 18 140/98 97 Room Air 05/26/17 20:12 87 18 Room Air 21 05/26/17 20:00 97.9 84 18 142/84 98 Room Air 05/26/17 17:39 97.9 05/26/17 16:02 97.9 86 20 129/84 98 Room Air Intake and Output 05/26/17 05/27/17 19:00 07:00 Intake Total 745.000 ml 385.000 ml Balance 745.000 ml 385.000 ml Intake Oral 360 ml IV Total 385.000 ml 385.000 ml # Voids 1 4 General Appearance: cachetic HEENT: normocephalic, atraumatic Respiratory/Chest: chest wall non-tender, lungs clear Cardiovascular: normal peripheral pulses, normal rate Abdomen: normal bowel sounds, soft, non tender Genitourinary: normal external genitalia Extremities: no clubbing Skin: no lesions 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 Microbiology Date/Time Source Procedure Growth Status 05/25/17 09:50 Synovial Fluid Gram Stain - Final Resulted 05/25/17 09:50 Synovial Fluid Body Fluid Culture - Preliminary NO GROWTH AFTER 48 HOURS Resulted Laboratory Tests 05/26/17 20:12: Vancomycin Level Trough 10.9 05/27/17 05:25: White Blood Count 12.6#H, Red Blood Count 4.34L, Hemoglobin 13.1L, Hematocrit 37.1L, Mean Corpuscular Volume 85, Mean Corpuscular Hemoglobin 30.2, Mean Corpuscular Hemoglobin Concent 35.3, Red Cell Distribution Width 12.2, Platelet Count 290, Mean Platelet Volume 7.2, Neutrophils (%) (Auto) 68.3, Lymphocytes (% ) (Auto) 26.0, Monocytes (%) (Auto) 4.7, Eosinophils (%) (Auto) 0.3, Basophils ( %) (Auto) 0.7, Erythrocyte Sedimentation Rate 21H, Sodium Level 140, Potassium Level 4.7, Chloride Level 101, Carbon Dioxide Level 27, Anion Gap 12, Blood Urea Nitrogen 18, Creatinine 0.8, Estimat Glomerular Filtration Rate , Glucose Level 98, Calcium Level 9.0, Phosphorus Level 3.5, Magnesium Level 2.0, Total Bilirubin 0.3, Aspartate Amino Transf (AST/SGOT) 14, Alanine Aminotransferase ( ALT/SGPT) 14, Alkaline Phosphatase 66, C-Reactive Protein, Quantitative 1.9H, Total Protein 6.6, Albumin 3.8, Globulin 2.8, Albumin/Globulin Ratio 1.3 Current Medications Medications (Trade) Dose Ordered Sig/Josh Route PRN Reason Start Time Stop Time Status Last Admin Dose Admin Acetaminophen (Tylenol) 650 mg Q4H PRN ORAL fever 05/25/17 07:15 06/24/17 07:14 Acetaminophen/ Hydrocodone Bitart ([place] 10/325) 1 ea Q4H PRN ORAL Severe Pain (Pain Scale 7-10) 05/25/17 07:15 06/01/17 07:14 05/27/17 14:54 Albuterol/ Ipratropium (DuoNeb 0.5-3(2.5)mg/3ml) 3 ml Q4H PRN HHN Shortness of Breath 05/25/17 07:15 05/30/17 07:14 Carisoprodol (Soma) 350 mg EVERY 8 HOURS ORAL 05/25/17 14:00 06/24/17 13:59 05/27/17 12:59 Cefepime HCl/ Dextrose (Maxipime/D5W) 110 ml @ 220 mls/hr Q12HR@0800,2000 IV 05/25/17 08:00 05/27/17 23:59 05/27/17 08:42 Celecoxib (CeleBREX) 200 mg DAILY ORAL 05/25/17 10:00 05/29/17 09:01 05/27/17 08:40 Dextrose (Dextrose 50%) STAT PRN IV Hypoglycemia 05/25/17 07:15 06/24/17 07:14 Enalapril Maleate (Vasotec) 5 mg DAILY ORAL 05/25/17 09:00 06/24/17 08:59 05/27/17 08:41 Gabapentin (Neurontin) 300 mg THREE TIMES A DAY ORAL 05/25/17 09:00 06/24/17 08:59 05/27/17 12:58 Heparin Sodium (Porcine) 5000 units 5,000 units EVERY 12 HOURS SUBQ 05/25/17 09:00 06/24/17 08:59 05/27/17 08:43 Indomethacin (Indocin) 25 mg THREE TIMES A DAY ORAL 05/25/17 13:00 06/24/17 12:59 05/27/17 12:58 Methylprednisolone Sodium Succinate 60 mg 60 mg DAILY IVP 05/27/17 09:00 06/26/17 08:59 05/27/17 08:59 Morphine Sulfate (Morphine Sulfate) 2 mg Q4H PRN IVP Moderate Pain (Pain Scale 4-6) 05/25/17 07:15 06/01/17 07:14 05/26/17 23:37 Nitroglycerin (Ntg) 0.4 mg Q5M PRN SL Prn Chest Pain 05/25/17 07:15 06/24/17 07:14 Ondansetron HCl (Zofran) 4 mg Q6H PRN IVP Nausea & Vomiting 05/25/17 07:15 06/24/17 07:14 Polyethylene Glycol (Miralax) 17 gm DAILYPRN PRN ORAL Constipation 05/25/17 07:15 06/24/17 07:14 05/26/17 05:44 Temazepam (Restoril) 15 mg HSPRN PRN ORAL Insomnia 05/25/17 07:15 06/01/17 07:14 Vancomycin HCl (Vanco rx to dose) 1 ea DAILY PRN MISC PER RX PROTOCOL 05/25/17 07:30 05/27/17 23:59 Vancomycin HCl/ Dextrose (Vancomycin/D5W) 275 ml @ 183.708 mls/hr Q12H IVPB 05/27/17 08:00 05/27/17 23:59 05/27/17 09:37 POLY DALEY May 27, 2017 15:12
[2017-05-27] MEDS ORDERED: INDOCIN25 MG ORAL (15:26)
[2017-05-27 16:00] VITALS: BP 135/92
[2017-05-27] MEDS ORDERED: ACETAMINOPHEN-1 EAC1 ORAL (16:05)
--- NOTE | 2017-05-28 08:30 | Discharge Summary ---
Discharge Summary Hospital Course Date of Admission May 25, 2017 at 04:24 Date of Discharge May 27, 2017 at 16:35 Admitting Diagnosis SEPTIC KNEE JOINT HPI Mariano Boyle is a 72 year old male who was admitted on May 25, 2017 at 04:24 for Septic Knee Joint Hospital Course dc summary #[id number] Discharge Medications New Medications: Indomethacin (Indomethacin) 50 Mg Capsule 25 MG ORAL THREE TIMES A DAY for 30 Days, CAP Continued Medications: Acetaminophen With Codeine (T#3) (Tylenol #3 Tab*) Y Tab 1 TAB ORAL Q6HR PRN for For Pain, #30 TAB Albuterol Sulfate* (Proair Hfa*) 8.5 Gm Hfa.aer.ad 2 PUFFS INH Q6H PRN, #1 EA Carisoprodol* (Soma*) 350 Mg Tablet 350 MG PO Q6 PRN Enalapril Maleate* (Enalapril Maleate*) 5 Mg Tablet 5 MG ORAL DA, TAB Fluticasone/Salmeterol (Advair 100-50 Diskus) 1 Puffs Puffs 1 PUFF INH NEEDED, EA Gabapentin* (Gabapentin*) 300 Mg Capsule 300 MG ORAL THREE TIMES A DAY, CAP 0 Refills Discharge Condition Upon Discharge: stable Discharge Disposition Patient was discharged to Home (01) Discharge Diagnoses: Discharge Instructions Discharge Instructions Special Instructions I have been assigned to complete a D/C Summary on this account. I was not involved in the patient management Louise Kumar NP ([facility]) May 28, 2017 08:30
--- NOTE | 2017-05-28 13:19 | Cardiology Report ---
APPROVED REPORT EKG Measurement Heart [id number] Sinus rhythm with fusion complexes Otherwise normal ECG
--- NOTE | 2017-05-29 07:02 | Discharge Summary 2 SIG ---
DATE OF ADMISSION: 05/25/2017 DATE OF DISCHARGE: 05/27/2017 REASON FOR ADMISSION: 72-year-old male with past medical history significant for hypertension, gout, asthma, fatty liver, and osteoarthritis, presented to emergency room with complaint of right knee pain and swelling. The pain was worse with flexion and movement of the knee. There was a concern of possible septic joint. The patient was afebrile. No leukocytosis. The patient undergone subsequently arthrocentesis in the emergency room, which yielded 50 mL of dark yellow straw colored material on aspiration. Results of the Gram stain revealed WBC -32,000 and PMNs more than 95%. Analysis for crystal was sent out and still pending. X-ray of the right knee reveals severe right knee osteoarthritis and suspected chondrocalcinosis. Orthopedic surgeon was consulted. The patient was admitted for further management. ADMITTING DIAGNOSES: 1. Right knee inflammatory arthritis, gout versus degenerative 2. Possible septic joint. 3. Possible gouty arthritis HOSPITAL STAY: ID and Ortho were consulted. Orthopedic surgeon recommended to start treatment presumptively for gouty arthritis while crystals were still pending. He recommended to hold off on antibiotic and start on systemic nonsteroid anti-inflammatory medications for treatment of gout. Pain management was addressed and managed. The patient was started on indomethacin along with IV steroids. ID consult was requested. ID doubted infection, given the fact that the patient did not look septic, had no fever and no leukocytosis. Patient's symptoms were resolving. The patient was started on empiric antibiotics. However, ID recommended that if culture come back negative to stop antibiotics soon. Culture of knee fluid from arthrocentesis was negative, preliminary. Antibiotics stopped , per ID observe the patient off antibiotics. The patient had no fever. He was clinically improving. Crystals were still pending. The patient did have leukocytosis on 05/27/2017 of 12.6, likely secondary to steroids. Noted elevated ESR and CRP due to the inflammatory process in the body. Chest x-ray was negative for any acute cardiopulmonary disease. Supplemental oxygen and pulmonary toilet were provided as needed to keep saturation above 92%. No evidence of asthma exacerbation. Blood pressure was managed with the current antihypertensive regimen, overall stable. DVT prophylaxis was provided. The patient was stable for discharge home. Followup with the primary medical doctor as outpatient. DISCHARGE DIAGNOSES: 1. Right knee inflammatory arthritis, gouty versus degenerative. 2. Severe osteoarthritis with suspected chondrocalcinosis. 3. Possible right knee septic joint was ruled out. 4. Likely gouty arthritis. 5. Status post arthrocentesis, right knee. DISCHARGE MEDICATIONS: See medication reconciliation list. DISCHARGE INSTRUCTIONS: The patient was discharged home. FOLLOWUP: Followup with the primary medical doctor. Chris Dunaway M.D. I have been assigned to dictate discharge summary on this account and I was not involved in the patient's management. Louise Olveradeja N.PJonh DR: LIAN JOB#: [id number] CC: AUSTYN
--- NOTE | 2017-05-29 19:27 | Diagnostic Imaging Report ---
APPROVED REPORT CPT Code: 30982 Present Symptoms Lower Extremity Pain: Bilateral BILATERAL: Imaging reveals a patent deep venous system bilaterally. There is no evidence of thrombus within the femoral, popliteal or tibial segments. The greater saphenous veins are also within normal limits. Doppler indicates normal spontaneous flow within these segments. INCIDENTAL FINDING: A Bakers cyst is noted at the popliteal fossa, measuring 4.3 X 2.5 cm.
== END 2017-05-27 16:35 | disposition home or self-care (01) | DRG 554 ==
LOC: EDUNIT# 01:14 → EDBD 01:14 → EMR 01:52 → 4E 04:24 → EDBEDREQ 04:33
PROC: 0S9C3ZZ Drainage of Right Knee Joint, Percutaneous Approach (ICD-10-PCS; principal; 2017-05-25)
DX: M13.861 Other specified arthritis, right knee (principal); I10 Essential (primary) hypertension; M10.9 Gout, unspecified; M17.11 Unilateral primary osteoarthritis, right knee; J45.909 Unspecified asthma, uncomplicated; M11.261 Other chondrocalcinosis, right knee; F17.200 Nicotine dependence, unspecified, uncomplicated; Z96.652 Presence of left artificial knee joint
CPT/HCPCS: 36415; 71010; 80053; 80202; 83735; 84100; 84550; 85025; 85610; 85651; 85730; 86140; 86850; 86900; 86901; 87070; 87205; 89051; 89060; 93005; 93970; 94664

== ENCOUNTER 2017-08-08 09:04 | Emergency (ER) | payer MEDICARE, OTHER ==
[~2017-08-08] VITALS: Ht 172.7 cm; Wt 65.8 kg
[~2017-08-08 09:04] MED LIST changes: +ACETAMINOPHEN-1 EAC1 ORAL; +INDOCIN25 MG ORAL
[2017-08-08 09:30] VITALS: BP 128/81
[2017-08-08] MEDS ORDERED: Methocarbamol 750mg tab ORAL ONE (09:45)
[2017-08-08] MEDS ORDERED: Morphine Sulfate 4mg/ml Inj IVP ONE (09:45)
[2017-08-08 10:00] LABS: BASOPHILS % (AUTO) 2.4 % (0.0-2.0); EOSINOPHILS % (AUTO) 4.3 % (0.0-3.0); LYMPHOCYTES % (AUTO) 26.5 % (20.0-45.0); MEAN CORPUSCULAR HEMOGLOBIN 28.7 PG (27.0-31.0); MEAN CORPUSCULAR HGB CONC 33.5 G/DL (32.0-36.0); MEAN CORPUSCULAR VOLUME 86 FL (80-99); MEAN PLATELET VOLUME 6.6 FL (6.5-10.1); MONOCYTES % (AUTO) 10.9 % (1.0-10.0); NEUTROPHILS % (AUTO) 55.8 % (45.0-75.0); PLATELET COUNT 325 K/UL (150-450); RED BLOOD COUNT 4.84 M/UL (4.70-6.10); RED CELL DISTRIBUTION WIDTH 13.2 % (11.6-14.8); WHITE BLOOD COUNT 8.6 K/UL (4.8-10.8)
[2017-08-08 10:14] LABS: ALANINE AMINOTRANSFERASE 20 U/L (12-78); ALBUMIN/GLOBULIN RATIO 0.9 (1.0-2.7); ANION GAP 8 (5-15); ASPARTATE AMINO TRANSFERASE 18 U/L (15-37); CALCIUM 9.2 MG/DL (8.5-10.1); CARBON DIOXIDE 26 MMOL/L (21-32); CHLORIDE 103 MMOL/L (98-107); CREATININE 0.9 MG/DL (0.55-1.30); SODIUM 137 MMOL/L (136-145); TOTAL PROTEIN 7.1 G/DL (6.4-8.2)
[2017-08-08] MEDS ORDERED: ROBAXIN-750750 MG PO (11:26)
[2017-08-08 12:00] VITALS: BP 142/93
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
== END 2017-08-08 12:00 | disposition home or self-care (01) ==
LOC: EDBD 09:04 → EMR 09:38
DX: M54.9 Dorsalgia, unspecified (principal); G89.29 Other chronic pain; I10 Essential (primary) hypertension; J45.909 Unspecified asthma, uncomplicated
CPT/HCPCS: 36415; 80053; 85025; 96372; 99284; J2270